=== PATIENT | female | born 1965 | race Caucasian/White ===

== ENCOUNTER 2017-10-18 15:22 | Outpatient (REF) | payer MEDICAID, SELFPAY ==
[2017-10-18 19:29] LABS: ALT 31 U/L (12-78); AST 22 U/L (15-37); Albumin 3.9 g/dL (3.4-5.0); Alkaline Phosphatase 94 U/L (46-116); Anion Gap 5.8 mmol/L (3-11); BUN 12 mg/dL (7-18); Bilirubin, Total 0.4 mg/dL (0.2-1.0); CO2 29.2 mmol/L (21.0-32.0); CREATININE 0.82 mg/dL (0.55-1.02); Chloride 102 mmol/L (98-107); Glucose 93 mg/dL (70-100); Potassium 4.3 mmol/L (3.5-5.1); Sodium 137 mmol/L (136-145); TSH 1.43 uIU/mL (0.358-3.74); Total Protein 7.4 g/dL (6.4-8.2)
[2017-10-22 10:27] LABS: Lyme Ab w Rflx to Lyme Confirm Negative
== END 2017-10-18 15:42 ==
LOC: NCHCN 15:22
PROVIDERS: Nurse Practitioner Family; PCP Internal Medicine; Visit Provider Internal Medicine
DX: M25.50 Pain in unspecified joint (principal)
CPT/HCPCS: 80053; 84443; 86618

== ENCOUNTER 2017-12-25 10:37 | Outpatient (REF) | payer MEDICAID, SELFPAY ==
[2017-12-25 21:05] LABS: ESR 15 MM/HR (0-30)
[2017-12-26 16:24] LABS: CRP, High Sensitivity 0.88 mg/L
[2017-12-27 09:55] LABS: Rheumatoid Factor 11 IU/mL (<12.5)
== END 2017-12-25 10:57 ==
LOC: NCHCN 10:37
PROVIDERS: PCP Internal Medicine; Visit Provider Nurse Practitioner Family
DX: M25.50 Pain in unspecified joint (principal)
CPT/HCPCS: 85652; 86141; 86431

== ENCOUNTER 2023-09-17 11:22 | Outpatient (REF) | payer MEDICAID, SELFPAY ==
[2023-09-17 19:26] LABS: Bilirubin Small (Negative); Blood Small (Negative); Clarity Sl Cloudy (Clear); Glucose Negative (Negative); Ketones Negative (Negative); Leukocyte Esterase Moderate (Negative); Nitrite Negative (Negative); Specific Gravity 1.025 (1.005-1.025); Urobilinogen 0.2 mg/dL (Up to 0.2); pH 5.5 (5-8)
[2023-09-17 19:42] LABS: WBC 20-50 HPF (0-5)
[2023-09-17 19:43] LABS: Bacteria Negative HPF (Negative); C & S Indicated? No/Sq. Contamination; Crystals Negative HPF (Negative); Epithelial Cells Many HPF (Negative); Mucus Heavy (Negative); Other Cells Rare Transitional (Negative)
[2023-09-17 20:38] LABS: ALT 28 U/L (14-59); AST 25 U/L (15-37); Albumin 3.8 g/dL (3.4-5.0); Alkaline Phosphatase 85 U/L (46-116); Anion Gap 8.2 mmol/L (3-11); BUN 13 mg/dL (7-18); Bilirubin, Total 0.58 mg/dL (0.2-1.0); CO2 28.8 mmol/L (21.0-32.0); CREATININE 0.9 mg/dL (0.55-1.02); Calcium 9.5 mg/dL (8.5-10.1); Calculated LDL 155 mg/dL (<100); Chloride 103 mmol/L (98-107); Cholesterol 228 mg/dL (<200); Estimated GFR 73.64 (mL/min/1.73m2); Glucose 95 mg/dL (74-106); HDL Cholesterol 61 mg/dL (40-60); Potassium 4.8 mmol/L (3.5-5.1); Sodium 140 mmol/L (136-145); Total Protein 7.7 g/dL (6.4-8.2); Triglyceride 63 mg/dL (<150)
== END 2023-09-17 11:23 | disposition home or self-care (01) ==
LOC: NCHCN 11:22
PROVIDERS: PCP Internal Medicine; Visit Provider Nurse Practitioner Family
DX: E78.5 Hyperlipidemia, unspecified (principal); N39.0 Urinary tract infection, site not specified
CPT/HCPCS: 80053; 80061; 81003; 81015

== ENCOUNTER 2023-09-28 16:43 | Outpatient (REF) | payer MEDICAID, SELFPAY ==
[2023-09-28 19:35] LABS: Bilirubin Negative (Negative); Blood Negative (Negative); Clarity Clear (Clear); Glucose Negative (Negative); Ketones Negative (Negative); Leukocyte Esterase Small (Negative); Nitrite Negative (Negative); Specific Gravity <= 1.005 (1.005-1.025); Urobilinogen 0.2 mg/dL (Up to 0.2); pH 6.5 (5-8)
[2023-09-28 19:41] LABS: Bacteria Rare HPF (Negative); C & S Indicated? No; Casts Negative LPF (Negative); Crystals Negative HPF (Negative); Epithelial Cells Few HPF (Negative); Mucus Negative (Negative); RBC Negative HPF (0-2)
== END 2023-09-28 16:44 | disposition home or self-care (01) ==
LOC: NCHCN 16:43
PROVIDERS: PCP Internal Medicine; Visit Provider Nurse Practitioner Family
DX: R31.29 Other microscopic hematuria (principal)
CPT/HCPCS: 81003; 81015

== ENCOUNTER 2024-07-04 20:17 | Outpatient (REF) | payer MEDICAID, SELFPAY | END 2024-07-04 20:18 | disposition home or self-care (01) | LOC: NCHCN 20:17 | PROVIDERS: PCP Internal Medicine; Visit Provider Physician Assistant | DX: R30.0 Dysuria (principal); B96.29 Other Escherichia coli [E. coli] as the cause of diseases classified elsewhere | CPT/HCPCS: 87077; 87086; 87186 ==

== ENCOUNTER 2024-07-16 15:20 | Outpatient (REF) | payer MEDICAID, SELFPAY ==
[2024-07-16 19:39] LABS: Abs Immature Grans 0.02 10^3/uL (0.0-0.06); Absolute Basophil Count 0.03 10^3/uL (0.0-0.2); Absolute Lymphocyte Count 2.64 10^3/uL (1.2-3.4); Absolute Monocyte Count 0.65 10^3/uL (0.1-0.8); Absolute Neutrophil Count 4.25 10^3/uL (1.2-6.7); Basophils % 0.4 %; Eosinophils % 2.6 %; HCT 42.2 % (36.0-46.0); HGB 13.6 g/dL (11.2-15.7); Immature Grans % 0.3 %; Lymphocytes % 33.9 %; MCH 28.6 pg (27.0-33.0); MCHC 32.2 % (32.0-36.0); MCV 89 fL (80-95); MPV 9.9 fL (8.0-11.0); Monocytes % 8.3 %; Neutrophils % 54.5 %; Platelet Count 251 10^3/uL (130-400); RBC 4.75 10^6/uL (3.93-5.22); RDW 13.1 % (11.7-14.6); WBC 7.79 10^3/uL (4.4-10.8)
[2024-07-16 19:43] LABS: ESR 15 mm/hr (0-30)
[2024-07-16 19:51] LABS: ALT 22 U/L (14-59); AST 22 U/L (15-37); Albumin 3.8 g/dL (3.4-5.0); Alkaline Phosphatase 84 U/L (46-116); Anion Gap 6.4 mmol/L (3-11); BUN 16 mg/dL (7-18); Bilirubin, Total 0.4 mg/dL (0.2-1.0); CO2 31.6 mmol/L (21.0-32.0); CREATININE 0.7 mg/dL (0.55-1.02); Calcium 9.3 mg/dL (8.5-10.1); Chloride 106 mmol/L (98-107); Estimated GFR 98.95 (mL/min/1.73m2); Glucose 115 mg/dL (74-106); Potassium 4.2 mmol/L (3.5-5.1); Sodium 144 mmol/L (136-145); Total Protein 7.3 g/dL (6.4-8.2)
[2024-07-16 19:59] LABS: Bilirubin Negative (Negative); Blood Negative (Negative); Clarity Clear (Clear); Glucose Negative (Negative); Ketones Trace mg/dL (Negative); Leukocyte Esterase Moderate (Negative); Nitrite Negative (Negative); Specific Gravity 1.025 (1.005-1.025); Urobilinogen 0.2 mg/dL (Up to 0.2)
[2024-07-16 20:07] LABS: Bacteria Many HPF (Negative); Casts Negative LPF (Negative); Crystals Negative HPF (Negative); Epithelial Cells Few HPF (Negative); Mucus Moderate (Negative); Other Cells Rare Renal (Negative); RBC Negative HPF (0-2); WBC 20-50 HPF (0-5)
[2024-07-16 20:08] LABS: C & S Indicated? Yes
[2024-07-18 12:06] LABS: ANA Interpretation Positive (Negative); ANA Titer Pattern 1:80 Homogeneous
[2024-07-20 17:03] LABS: Anaplasma phagocytophilum Negative (Negative); B. miyamotoi PCR Negative (Negative); Babesia divergens/MO-1 Negative (Negative); Babesia duncani Negative (Negative); Babesia microti Negative (Negative); Ehrlichia chaffeensis Negative (Negative); Ehrlichia ewingii/canis Negative (Negative); Ehrlichia muris eauclairensis Negative (Negative)
== END 2024-07-16 15:21 | disposition home or self-care (01) ==
LOC: NCHCN 15:20
PROVIDERS: PCP Internal Medicine; Visit Provider Nurse Practitioner Family
DX: R53.83 Other fatigue (principal); R39.15 Urgency of urination; R10.84 Generalized abdominal pain; M25.59 Pain in other specified joint; R82.89 Other abnormal findings on cytological and histological examination of urine
CPT/HCPCS: 80053; 85652; 87798; 81003; 81015; 85025; 86038; 87086

== ENCOUNTER 2024-07-21 11:01 | Outpatient (CLI) | payer MEDICAID, SELFPAY | END 2024-07-21 11:02 | disposition home or self-care (01) | PROVIDERS: PCP Internal Medicine; Referring Provider Nurse Practitioner Family; Visit Provider Nurse Practitioner Family | DX: R06.09 Other forms of dyspnea (principal) | CPT/HCPCS: 93246 ==

== ENCOUNTER 2024-07-24 02:05 | Outpatient (CLI) | payer MEDICAID, SELFPAY ==
[2024-07-24] MEDS: Levalbuterol HFA 15 GM INH 4 PUFF IH (14:11)
[2024-07-24] MEDS: Inhaler, Assist Device 1 EACH MC (14:11)
--- NOTE | 2024-08-17 09:57 | W.PFT ---
Date of service: 07/24/24 Time of Service: 12:56 Pulmonary Function Test Result Indications: Dyspnea on exertion Interpretation Spirometry: There is no airflow limitation. No significant bronchodilator response. Impression Normal spirometry Clinical Correlation therefore is recommended.
== END 2024-07-24 02:06 | disposition home or self-care (01) ==
LOC: RT 02:05
PROVIDERS: PCP Internal Medicine; Visit Provider Student in an Organized Health Care Education/Training Program
DX: R06.09 Other forms of dyspnea (principal)
CPT/HCPCS: 94060

== ENCOUNTER 2024-07-24 19:12 | Outpatient (REF) | payer MEDICAID, SELFPAY | END 2024-07-24 19:13 | disposition home or self-care (01) | LOC: NCHCN 19:12 | PROVIDERS: PCP Internal Medicine; Visit Provider Nurse Practitioner Family | DX: Z13.828 Encounter for screening for other musculoskeletal disorder (principal) | CPT/HCPCS: 86431 ==

== ENCOUNTER 2024-08-14 10:20 | Outpatient (CLI) | payer MEDICAID, SELFPAY ==
--- NOTE | 2024-08-14 12:35 | W.CARDEVENT ---
Date of service: 08/14/24 Time of Service: 12:35 Cardiac Event Recorder Referring Provider:: Halie Keith Indications:: Dyspnea Cardiac Event Note: This is a cardiac event monitor. Patient was monitored for 9 days and 13 hours Rhythm throughout was sinus with an average heart rate of 71. Minimum was 48, maximum 115 There were occasional ventricular ectopic beats. There were several ventricular triplets There were rare atrial premature beats. Self-limited atrial runs occurred. The majority of these were 4-5 beats in duration. Longest was 12 beats. There was no atrial fibrillation, no high-grade AV block, no pauses greater than 3 seconds. Reported symptoms had no correlation to any significant dysrhythmia
== END 2024-08-14 10:21 | disposition home or self-care (01) ==
LOC: CARDOPNVT 10:20
PROVIDERS: PCP Internal Medicine; Visit Provider Internal Medicine Cardiovascular Disease
DX: R06.00 Dyspnea, unspecified (principal); I49.3 Ventricular premature depolarization; I49.1 Atrial premature depolarization
CPT/HCPCS: 93248

== ENCOUNTER 2024-08-25 02:02 | Outpatient (CLI) | payer MEDICAID, SELFPAY ==
--- NOTE | 2024-08-25 | ETT_ITS ---
APPROVED REPORT Exam: Exercise Treadmill Patient Location: Out-Patient Room/Bed: Stress Nurse: Corry Carrion RN Ordering Provider:FERNANDOMARIUSZ HAYES, Contact Number: [phone] BMI: 27.27 Baseline Rhythm: Sinus Rhythm Indications: dyspnea on exertion Medical History Medical History: depression, migraines, HLD, fibromyalgia, smoker Cardiac Medications: paroxetine, rizatriptan, magnesium oxide, propanolol ER, cyclobenzaprine Allergies: meperidine Cardiac Risk Factors: HLD, smoker Previous Cardiac Procedures: n/a Pretest Chest Pain Characteristics: No chest pain Exercise History: Indeterminate Physical Disabilities: n/a Lung Sounds: Clear to auscultation Heart Sounds: Regular Stress Test Details Test: Exercise stress testing was performed using a Ned protocol. Rest Stress HR Resting HR Supine: 66 bpm Max Heart Rate (APMHR): 160 bpm Resting HR Standin bpm Target HR (85% APMHR): 136 bpm Max HR Achieved: 152 bpm % of APMHR: 95 Recovery HR: 85 bpm HR response to stress: Normal HR response to stress BP Resting BP Supine: 142/94 mmHg Resting BP Standin/98 mmHg Max BP: 172/82 mmHg Recovery BP: 124/90 mmHg BP response to stress: Normal blood pressure response to stress. ECG Resting ECG: Sinus Rhythm Ectopy: occasional PVCs, rare PACs Stress ECG: Sinus Tachycardia ST Change: No significant ST segment changes noted Arrhythmia: occassional PVCs/quadrigeminy, rare PACs Recovery ECG: Sinus Rhythm Recovery ST Change: No significant ST segment changes noted Recovery Arrhythmia: rare PACs, occasional PVCs Clinical Reason for Termination: Fatigue Stress Symptoms: Chest pain, Dyspnea, General Fatigue Exercise duration: 06 min26 sec Highest Stage Reached: Stage 2: 2.5 mph at 12% grade. Exercise capacity: 7.72 METs Rate Pressure Product: [id number] Stress ECG Conclusion 1. Resting electrocardiogram was normal 2. Patient exercised on the Ned protocol and completed a workload of 8 METS 3. Normal heart rate and blood pressure response to exercise. The patient achieved 92% of maximal predicted heart rate for age 4. There was no electrocardiographic evidence of myocardial ischemia 5. There were no significant dysrhythmias Stress Test Summary STAGE Time (mins) Speed (mph) Grade (%) HR BP SpO2 SYMPTOMS METS Supine 66 142/94 94 Standing 77 130/98 96 1 3 1.7 10 114 154/96 95 mild SOB 4.5 2 6 2.5 12 138 150/90 1-2/10 pinching CP 7 3 9 3.4 14 146 10 1 min recovery 128 176/82 97 2/10 CP 3 min recovery 82 130/96 0.5/10 CP 6 min recovery 85 124/90 96 Test stopped after patient achieved target HR at patient's request r/t SOB and general fatigue. Pt c/o 1-2/10 pinching CP during test. All symptoms resolved by end of recovery. Pt left ambulatory in no acute distress.
== END 2024-08-25 02:22 ==
LOC: DI 02:02
PROVIDERS: PCP Internal Medicine; Visit Provider Internal Medicine Cardiovascular Disease
DX: R06.09 Other forms of dyspnea (principal)
CPT/HCPCS: 93017

== ENCOUNTER 2024-09-01 07:45 | Outpatient (CLI) | payer MEDICAID, SELFPAY ==
--- NOTE | 2024-09-01 07:45 | RT.EKG_ITS ---
APPROVED REPORT Exam: Resting ECG Reason for Exam: CHENG Patient Location: O HR:61 bpm ECG Measurements Heart Rate 61 AXIS ME 160 P 77 QRSd 82 QRS 46 QT 406 T 53 QTc 409 Conclusion Sinus rhythm...normal P axis, V-rate 50- 99 Probable left atrial enlargement...P >50mS, <-0.10mV V1 Otherwise normal ECG
== END 2024-09-01 07:46 | disposition home or self-care (01) ==
LOC: DI.CARD 07:46
PROVIDERS: PCP Internal Medicine; Visit Provider Registered Nurse
DX: R06.09 Other forms of dyspnea (principal); I51.7 Cardiomegaly
CPT/HCPCS: 93010

== ENCOUNTER 2024-09-16 02:34 | Outpatient (CLI) | payer MEDICAID, SELFPAY ==
--- NOTE | 2024-09-16 13:30 | DI.US_ITS ---
APPROVED REPORT EXAM: Comprehensive 2D, Doppler, and color-flow Echocardiogram Patient Location: Out-Patient Outbound Supervisor: Annetta Villareal RDCS (AE) Indications: CHENG Other Information Study Quality: Adequate Conclusion Normal left ventricular wall thickness and chamber size. Ejection fraction is 60%. Wall motion is normal Normal right ventricular size and function Both atria are normal in size There is no structural or hemodynamically significant valvular disease Normal estimated right ventricular systolic pressure 22 mmHg Mildly dilated aortic root and ascending aorta Wall motion Left Ventricle The left ventricle is normal size. The left ventricular systolic function is normal. The left ventricular ejection fraction is within the normal range. There is normal left ventricular wall thickness. There is normal LV segmental wall motion. There is no ventricular septal defect visualized. LVEF is 60%. Right Ventricle The right ventricle is normal size. The right ventricular systolic function is normal. Atria The left atrium size is normal. The right atrium size is normal. The interatrial septum is intact with no evidence for an atrial septal defect. Aortic Valve The aortic valve is normal in structure. Aortic valve is trileaflet. There is no aortic valvular stenosis. No aortic regurgitation is present. Mitral Valve The mitral valve is normal in structure. No evidence of mitral valve stenosis. Trace mitral regurgitation. Tricuspid Valve The tricuspid valve is normal in structure. There is no tricuspid valve stenosis. Trace tricuspid regurgitation. The RVSP is 21.6_ mmHg. Pulmonic Valve The pulmonary valve is normal in structure. There is no pulmonic valvular stenosis. There is no pulmonic valvular regurgitation. Great Vessels Aortic root is mildly dilated. The ascending aorta is mildly dilated. Aortic arch is not well visualized. IVC is normal in size and collapses >50% with inspiration. Pericardium There is no pericardial effusion. 2D Dimensions IVSD d PLAX 0.80 cm F: 0.6-1.0 Ao Root d 3.52 cm F: 2.7 - 3.3 LVPW d PLAX 0.80 cm F: 0.6 - 1.0 Ao Asc Diam d 3.56 cm F: 2.3 - 3.1 LVID d PLAX 4.40 cm F: 3.8 - 5.2 LVDs 3.10 cm F: 2.2 - 3.5 LV EF Teichholz 56.9 % FS 29.65 % LV EDV (Teich) 86.5 mL LV ESV (Teich) 37.3 mL M-Mode TAPSE 2.39 cm (M/F) >1.7 Auto EF LV EDV A4C 91.3 mL LV EDV A2C 105.8 mL LV EDV BP 100.0 mL LV ESV A4C 40.6 mL LV ESV A2C 49.1 mL LV ESV BP 43.1 mL LVEF(%) A4C 55.5 % LVEF(%) A2C 53.6 % LVEF(%) BP 56.9 % LV SV A4C 50.7 ml LV SV A2C 56.8 ml LV SV BP 56.9 ml LV CO A4C 3.2 L/min LV CO A2C 3.7 L/min LV CO BP 3.4 L/min HR A4C 63.38 BPM HR A2C 64.52 BPM LV EDV Index (BP) LA Volume LA Length A4C 4.3 cm LA Length A2C 4.4 cm LA Area A4C s 16.42 cm2 LA Area A2C s 14.32 cm2 LA Vol A4C A-L 52.71 mL LA Vol A2C A-L 39.57 mL LA Vol Biplane A-L 46.0 mL LA Vol/BSA A4C A-L LA Vol/BSA A2C A-L LA Vol/BSA BP A-L 24.2 mL/m2 LA Vol A4C MOD 48.9 mL LA Vol A2C MOD 35.6 mL LA Vol BP MOD 41.7 mL RA Volume RA Area A4C 9.7 cm2 RA ESV A4C (A-L) 19.9mL RA Vol/BSA A4C A-L RA Length A4C 4.0 cm RA ESV A4C (MOD) 18.9mL LV Diastology MV E' medial 0.118 (>0.07 m/s) MV E Vmax 0.69 (0.4-1.3 m/s) MV E/E' MED 5.87 (<14) MV A Vmax 0.50 (0.4-1.3 m/s) MV E' lateral 0.154 (>0.1 m/s) E/A Ratio 1.4 MV E/E' LAT 4.48 (<14) MV E' Average 0.136 m/s MV E/E'(average) 5.08 Aortic Valve AoV Vmax 1.26 m/s LVOT Vmax 1.01 m/s AoV Peak Grad 6.4 mmHg LVOT Peak Grad 4.0 mmHg AoV Area (Vmax) 2.34 cm2 LVOT VTI 0.232 m AoV VTI 0.305 m LVOT Mean Grad 1.9 mmHg AoV Mean Duran. 0.86 m/s LVOT SV 68.06 mL AoV Mean Grad 3.5 mmHg LVOT Diam s 1.90 cm AoV Area (VTI) 2.23 cm2 AV Regurg Peak Gr. 6.37 mmHg Velocity Ratio 0.80 Mitral Valve MV DT 171 (160-240 msec) MV Vmax TIPS 0.68 m/s MV Mean Grad 0.7 (<2mmHg) MV VTI 0.181 m Pulmonary Valve RVOT Vmax 0.77 m/s RVOT Peak Gr. 2.4 mmHg RVOT VTI 0.186 m RVOT Mean Gr. 1.3 mmHg Tricuspid Valve RA Pressure 3.00 mmHg TR Vmax 2.16 m/s TV S' 0.14 m/s TR Peak Grad 18.6 mmHg RVSP (TR) 21.6 mmHg
== END 2024-09-16 02:54 ==
LOC: DI 02:34
PROVIDERS: PCP Internal Medicine; Visit Provider Internal Medicine Cardiovascular Disease
DX: R06.09 Other forms of dyspnea (principal)
CPT/HCPCS: 93306

== ENCOUNTER 2024-10-20 09:54 | Outpatient (CLI) | payer MEDICAID, SELFPAY ==
--- NOTE | 2024-10-20 | DI.MAMMO_ITS ---
Exam(s) MAMMO SCREENING EXAM: MAMMO SCREENING CLINICAL HISTORY: SCREENING MAMMO Z12.31. TECHNIQUE: Bilateral full field digital CC and MLO mammographic images were obtained with 3D tomosynthesis and utilizing computer aided detection (CAD). COMPARISON: Prior 2017 mammograms were reviewed. No other priors available. FINDINGS: There has been no significant change in the appearance and distribution of the fibroglandular tissue. There are no new spiculated masses nor malignant appearing microcalcification groups. There is no significant architectural distortion nor skin thickening-retraction. IMPRESSION: No radiographic evidence of malignancy. BI-RADS Category 1 - Negative Breast Density - Category C - The breast are heterogeneously dense, which may obscure small masses. Breast density Category C or D implies that the patient has dense breast tissue. Dense breast tissue can make it harder to find cancer on a mammogram. Dense breast tissue is also associated with an increased risk of breast cancer. This information about the result of the mammogram report was provided to the patient to raise their awareness. Use this report when you speak with the patient about their risks for breast cancer, which includes their family history. At that time, you may recommend additional screening tests (Ultrasound or MRI) as these tests may add significant information. A negative radiographic report should not delay biopsy if a dominant or clinically suspicious mass is present. Up to ten percent of cancers are not identified on mammography. A negative report may reinforce clinical impression. Adenosis and dense breasts may obscure an underlying neoplasm. False positive reports average 6 to 10%. Patient will receive a letter notifying them of these results.
== END 2024-10-20 10:14 ==
LOC: DI 09:54
PROVIDERS: PCP Internal Medicine; Visit Provider Nurse Practitioner Family
DX: Z12.31 Encounter for screening mammogram for malignant neoplasm of breast (principal)
CPT/HCPCS: 77063; 77067